=== PATIENT | female | born 1965 | race Caucasian/White ===

== ENCOUNTER 2018-02-02 20:30 | Outpatient (CLI) | payer BC | END 2018-02-02 20:31 | disposition home or self-care (01) | LOC: SLEEPLAB 20:30 | PROVIDERS: ATTEND Internal Medicine | DX: G47.33 Obstructive sleep apnea (adult) (pediatric) (principal); R53.83 Other fatigue; R09.89 Other specified symptoms and signs involving the circulatory and respiratory systems; R06.83 Snoring; G47.00 Insomnia, unspecified; G47.10 Hypersomnia, unspecified; Z68.28 Body mass index [BMI] 28.0-28.9, adult | CPT/HCPCS: 95810 ==

== ENCOUNTER 2018-02-21 20:30 | Outpatient (CLI) | payer BC | END 2018-02-21 20:31 | disposition home or self-care (01) | LOC: SLEEPLAB 20:30 | PROVIDERS: ATTEND Internal Medicine | DX: G47.33 Obstructive sleep apnea (adult) (pediatric) (principal); G47.31 Primary central sleep apnea; R53.83 Other fatigue; R40.0 Somnolence; E66.9 Obesity, unspecified; Z68.28 Body mass index [BMI] 28.0-28.9, adult | CPT/HCPCS: 95811 ==

== ENCOUNTER 2018-05-25 06:31 | Day surgery (SDC) | payer BC ==
[2018-05-24 13:58] VITALS: BMI 29.7
[2018-05-25 07:36] VITALS: BP 105/78; TEMP 97.8
--- NOTE | 2018-05-25 09:29 | CT ---
CT CERVICAL SPINE WITHOUT CONTRAST: Comparison: None. History: Neck pain for a few years. Technique: Multiple contiguous axial images were obtained in a CT cervical spine without contrast. Sa gittal and coronal reformats were performed. FINDINGS: The vertebral bodies demonstrate normal height and alignment without acute fracture or subluxation. T here are moderate osteophytes surrounding the C6-7 interval vertebral disc space. No prevertebral sof t tissue swelling is seen. The posterior facets are well aligned. Normal alignment of the skull base with the cervical spine is seen. IMPRESSION: Degenerative changes of the cervical spine without acute osseous abnormality. POS: [facility]
--- NOTE | 2018-05-25 10:00 | RAD ---
LUMBAR MYELOGRAM: HISTORY: Lumbar stenosis. COMPARISON: None. FLUOROSCOPY TIME: 0.5 minutes DOSE AREA PRODUCT: 476.9 GY per m2. FINDINGS: The patient is brought to the fluoroscopy suite. [facility] radiographs of the lumbar spine demonstrate a spinal stimulator, as well as posterior spinal fusion and anterior spinal fusion from L3-S1. There is also bilateral SI joint fusion. The patient's back was prepped and draped in the normal sterile fashion. The patient was placed pron e on the table. Informed consent was obtained. A time out was performed. Lidocaine 4 mL was instilled into to superficial and deep soft tissues. Using a 22 gauge spinal need le, the L2-L3 interspace was accessed, and 10 mL of Isovue-200 was instilled into the thecal sac. Th e patient tolerated the procedure well without complications. IMPRESSION: Technically successful fluoroscopic guided myelogram. POS: [facility]
--- NOTE | 2018-05-25 10:57 | CT ---
CT LUMBAR SPINE WITH INRATHECAL CONTRAST: HISTORY: Back pain. Post myelogram. COMPARISON: Lumbar spine CT from 10/12/2015. FINDINGS: The aortic contour is nonaneurysmal. No retroperitoneal adenopathy. No hydronephrosis. There is a spinal stimulator with intact leads entering the T12-L1 interspace, po steriorly. Bilateral SI joint fusion of S1-S3. Posterior and anterior spinal fusion, L3-S1. The dillard rgical hardware is intact. No complication. There is bone graft from these levels. The right L4 pe dicle screw has no osseous purchase. The levels are as follows: L1-L2: There is a right subforaminal paracentral moderate recess posterior broad-based disk bulge wi th associated small osteophyte. There is moderate right-sided neural foraminal narrowing. Mild liga mentum flavum hypertrophy. The spinal canal is not significantly narrowed. L2-L3: Circumferential disk bulge. Ligamentum flavum hypertrophy. There is crowding of the spinal canal, which is narrowed to approximately 7 mm. Circumferential disk bulge causes moderate bilateral neural foraminal narrowing. There is also mild to moderate facet arthropathy. L3-L4: Anterior and posterior interbody fusion. No significant neural foramina or spinal canal narr owing. L4-L5: Anterior and posterior interbody fusion. No significant neural foraminal or spinal canal suman rowing. L5-S1: Anterior and posterior interbody fusion. No significant neural foramina or spinal canal narr owing. IMPRESSION: 1. Circumferential disk bulge at L2-L3, the level above the hardware, with ligamentum flavum hypertr ophy, narrowing the spinal canal to 7 mm, as well as moderate bilateral neural foraminal narrowing. 2. There is no osseous purchase of the vertebral body of the right L4 pedicular screw. POS: [facility]
[2018-05-25] MEDS ORDERED: Iopamidol-M 200 41% 20 ML VIAL ONE (16:16)
== END 2018-05-25 09:30 | disposition home or self-care (01) ==
LOC: RAD 06:31
PROVIDERS: ATTEND Anesthesiology Pain Medicine
DX: M47.812 Spondylosis without myelopathy or radiculopathy, cervical region (principal); M51.16 Intervertebral disc disorders with radiculopathy, lumbar region; M48.02 Spinal stenosis, cervical region; M48.062 Spinal stenosis, lumbar region with neurogenic claudication
CPT/HCPCS: 62304; 72125; 72132

== ENCOUNTER 2018-07-15 07:07 | Day surgery (SDC) | payer BC ==
[2018-07-14 15:01] VITALS: BMI 27.9
[2018-07-15 09:21] VITALS: BP 121/83; TEMP 97.8
--- NOTE | 2018-07-15 10:02 | RAD ---
CERVICAL SPINE MYELOGRAM INDICATION: Cervical spine radiculopathy, neck pain. PROCEDURE: After informed consent had been obtained, the patient was escorted to the interventional suite and pl aced on the procedural table. [employer] Manager imaging was performed. The patient was placed into a prone posi tion. Skin on the low back was then prepped and draped in the standard sterile fashion and topical a nd regional soft tissue anesthesia was achieved with 1% lidocaine and sodium bicarbonate. Left inte rlaminar L2-3 approach was selected, and a 22 gauge needle was uneventfully advanced into the thecal sac with clear color CSF. Subsequently, 9 cc Isovue M300 was instilled into the thecal sac under tiffany l time fluoroscopy. Appropriate opacification of thecal sac demonstrated with imaging stored for con firmation. The needle was then removed from the patient. The patient tolerated the procedure well a nd was then transferred to CT to undergo subsequent myelogram. Reference separate report for full de tails. Fluoro data: 0.3 minutes intermittent fluoroscopy, 30 mGy*cm^2. IMPRESSION: Technically successful cervical myelogram as detailed above. POS: [facility]
--- NOTE | 2018-07-15 11:12 | CT ---
CT CERVICAL SPINE WITH CONTRAST: CT CERVICAL MYELOGRAM: INDICATIONS: Cervical spine radiculopathy. Neck pain. TECHNIQUE: Please reference the cervical spine myelogram report for procedural details. FINDINGS: There is degenerative hypertrophy with osteophytosis of the C1-C2 articulation. No high-grade centra l canal stenosis of this level. C2-C3: No significant central canal or neural foraminal stenosis. C3-C4: No significant central canal or neural foraminal stenosis. C4-C5: Mild disk osteophyte complex with effacement of the ventral thecal sac. No significant cord deformity or high-grade foraminal stenosis. C5-C6: There is mild central canal stenosis and mild ventral cord effacement due to a broad-based di sk osteophyte. There is bilateral uncinate process hypertrophy, associated with mild bilateral neura l foraminal narrowing. C6-C7: There is a left asymmetric broad-based disk osteophyte with mild to moderate central canal st enosis and ventral cord effacement, more notable on the left. The is uncinate process hypertrophy wi th moderate left and mild to moderate right neural foraminal narrowing. C7-T1: There is a broad-based mild disk osteophyte with slight effacement of the ventral thecal sac. No high-grade foraminal stenosis. Focal kyphosis is centered at C6. Prominent anterior osteophytosis and pronounced disk space narrowi ng with endplate irregularity is present at the C6-C7 level. IMPRESSION: Multilevel degenerative change of the cervical spine, which is most pronounced at the C5-C6 and C6-C7 levels. POS: [facility]
== END 2018-07-15 10:00 | disposition home or self-care (01) ==
LOC: RAD 07:07
PROVIDERS: ATTEND Anesthesiology Pain Medicine
PROC: B01B1ZZ Fluoroscopy of Spinal Cord using Low Osmolar Contrast (ICD-10-PCS; principal; 2018-07-15)
DX: M50.122 Cervical disc disorder at C5-C6 level with radiculopathy (principal); M48.02 Spinal stenosis, cervical region; Z79.899 Other long term (current) drug therapy; Z88.1 Allergy status to other antibiotic agents
CPT/HCPCS: 62302; 72126

== ENCOUNTER 2019-08-24 13:35 | Outpatient (CLI) | payer BC ==
--- NOTE | 2019-08-24 15:35 | CT ---
CT OF RIGHT FOOT PERFORMED WITHOUT CONTRAST ENHANCEMENT: Date: 08/24/2019 HISTORY: Bilateral foot pain. FINDINGS: There are small calcaneal spurs at the Achilles tendon and plantar fascia insertion. There is an oste ochondral type lesion involving the anteriormost articular surface of the medial side of the talar do me. This measures approximately 9-10 mm in size. There is a well-defined sclerotic border. No evidenc e of any loose fragment. The midfoot region is fairly unremarkable without significant arthritic change. There are some modera tely severe arthritic changes of the first metatarsophalangeal joint and fairly prominent spur format ion, and joint space narrowing, particularly on the dorsal side of the joint. IMPRESSION: 1. Osteochondral lesion involving the anteriormost articular surface of the medial side of the talar dome. 2. Calcaneal spurs. 3. Moderate arthritic changes of first metatarsophalangeal joint. POS: [facility]
--- NOTE | 2019-08-24 15:36 | CT ---
CT OF LEFT FOOT PERFORMED WITHOUT CONTRAST ENHANCEMENT: 08/24/19 HISTORY: Left foot pain. Calcaneal spurs at the insertion of the Achilles tendon as well as plantar fascia are noted. Ankle nohemi int shows minimal arthritic change. Some benign appearing sclerotic density of the cuboid at the calc aneocuboid joint. No other significant midfoot findings. There are moderately severe arthritic changes of the first metatarsophalangeal joint. Marked joint s pace narrowing, particularly on the dorsal side of the joint and some hypertrophic changes involving the sesamoids. IMPRESSION: 1. Moderately severe osteoarthritic changes of the first metatarsophalangeal joint. 2. Calcaneal spurs. POS: [facility]
== END 2019-08-24 13:36 | disposition home or self-care (01) ==
LOC: SCSCT 13:35
PROVIDERS: ATTEND Podiatrist Foot & Ankle Surgery
DX: M20.21 Hallux rigidus, right foot (principal); M20.22 Hallux rigidus, left foot; M19.071 Primary osteoarthritis, right ankle and foot; M19.072 Primary osteoarthritis, left ankle and foot; M77.31 Calcaneal spur, right foot; M77.32 Calcaneal spur, left foot; M89.9 Disorder of bone, unspecified

== ENCOUNTER 2019-10-18 09:24 | Emergency (ER) | payer BC, OTHER | END 2019-10-18 10:08 | disposition home or self-care (01) | LOC: ERS 09:24 | DX: J02.9 Acute pharyngitis, unspecified (principal); J45.909 Unspecified asthma, uncomplicated; I10 Essential (primary) hypertension; E78.00 Pure hypercholesterolemia, unspecified; F41.9 Anxiety disorder, unspecified; F32.9 Major depressive disorder, single episode, unspecified | CPT/HCPCS: 99283 ==

== ENCOUNTER 2020-04-06 07:34 | Day surgery (SDC) | payer BC ==
[2020-04-05 12:55] VITALS: BMI 29.1
--- NOTE | 2020-04-06 10:04 | RAD ---
CERVICAL AND LUMBAR MYELOGRAM: HISTORY: Spinal stenosis. COMPARISON: 05/25/2018. FINDINGS: AP and lateral catalyst recovery operator cervical spine radiograph demonstrate a normal predental space. Cervical spine v ertebral body heights are maintained. No fracture. There is reversal of cervical lordosis at the C5-C6 level. Moderate degenerative disc disease at C5-C6. Moderate severe degenerative change at C6-C 7. Two views lumbar spine demonstrate bilateral transpedicular screws at L3, L4, L5 and S1. There is ant erior fusion at L3-L4, L4-L5 and L5-S1 with associated prosthesis. There are metallic fusion rods traversing bilateral SI joints. Dorsal column stimulator is noted. Stimulator enters the thecal sac a t the L1-L2 disc space. Successful lumbar puncture. A total of 9 cc of Isovue-M 300 contrast was administered intrathecally. Contrast was administered at the L1-L2 level. No immediate or postprocedural complications. TECHNIQUE: Consent was obtained reformatory lumbar puncture for lumbar and cervical myelogram. Patient's back wa s evaluated. Initially, the L2-L3 level was deemed appropriate. Skin was prepped and draped in sterile fashion. 1% lidocaine, buffered with sodium bicarbonate was used for local anesthesia. Attemp t was made to enter the CSF space but is unsuccessful. Therefore, the patient was anesthetized at the L1-L2 level. A 22-gauge spinal needle successfully entered the CSF space. There is prompt flow of clear CSF into the hub of the needle. Via a short tubing catheter, a total of 9 cc of Isovue-M 300 contrast was administered intrathecally. Patient tolerated the procedure well. No immediate or postpr ocedure complications. IMPRESSION: Successful lumbar puncture for cervical and lumbar myelogram. Transcribed Date/Time: 04/06/2020 10:20 AM
--- NOTE | 2020-04-06 10:27 | CT ---
POST MYELOGRAM CERVICAL SPINE CT: HISTORY: Cervical spinal stenosis. COMPARISON: 07/15/2018. FINDINGS: There is stable straightening of cervical lordosis with reversal of lordosis at the C5-C7 level. Ther e is no craniocervical dissociation. Appropriate alignment of the lateral masses of C1 and C2. Intact odontoid process. Predental space is normal. There is no prevertebral soft tissue swelling. Mild heterogeneity of the thyroid gland. Upper mediastinum and lung apices do not demonstrate any abnormality. Cervical spine vertebral body heights are maintained. There is no fracture. C2-C3: Central disc osteophyte complex. Arachnoid space is maintained. No significant central canal s tenosis. Patent bilateral neural foramina. C3-C4: Broad-based discussed by complex abuts the thecal sac. Subarachnoid space is maintained. Mild central canal stenosis. Patent bilateral neural foramina. C4-C5:Broad-based disc osteophyte complex abuts the thecal sac. Subarachnoid space maintained. No sig nificant central canal stenosis. Patent bilateral neural foramina. C5-C6: Moderate severe loss of disc space height. Anterior osteophyte. Broad-based disc osteophyte co mplex. Moderate central canal stenosis. Moderate to severe bilateral neural foraminal narrowing due to uncovertebral hypertrophy. C6-C7:Severe loss of disc space height. There is anterior osteophyte formation. Broad-based disc oste ophyte complex with moderate central canal stenosis. Moderate right and moderate to severe left neural foraminal narrowing. C7-T1: Moderate loss of disc space height. Broad-based disc osteophyte complex with a central disc he rniation. Moderate stenosis of the left aspect of the central spinal canal. Mild bilateral neural foraminal narrowing. IMPRESSION: .Multilevel degenerative changes of the cervical spine as described above. Transcribed Date/Time: 04/06/2020 11:27 AM
--- NOTE | 2020-04-06 10:32 | CT ---
POSTMYELOGRAM LUMBAR SPINE CT: HISTORY: Spinal stenosis. Extensive lumbar fusion. Multiple previous surgeries. COMPARISON: 05/25/2018. FINDINGS: There are bilateral transpedicular screws at L3, L4, L5 and S1. There are associated vertical stabili zation rods and bone graft material. Anterior fusion along with a disc prosthesis at L3-L4, L4-L5 and L5-S1. Dorsal column similar enters the thecal sac at the T12-L1 disc space. Visualized solid organs, alimentary canal, paraspinal muscles and aorta do not demonstrate any acute abnormality. Sacral ala are preserved. Presacral fat is preserved. There are metallic fusion devices bridging bila teral SI joints without evidence of perihardware lucency. Sclerosis involving both sides of the SI joints bilaterally. SI joints are still patent. With regards to the bilateral transpedicular screws there is no perihardware lucency. Note, the right L5 transpedicular screw does not enter the associated lumbar vertebrae. Conus medullaris terminates at the T12-L1 disc space. L1-L2: Central/right subarticular disc herniation. There is contact upon the traversing right L2 nerv e root without significant obscuration. Overall there is mild central canal stenosis. Mild bilateral neural foraminal narrowing. L2-L3: Broad-based disc bulge, ligament flavum thickening and facet hypertrophy result in moderate to severe central canal stenosis. Mild right and moderate left neural foraminal narrowing L3-L4: Posterior laminectomy defect. Disc prosthesis. No significant central canal stenosis or signif icant neural foraminal narrowing. L4-L5: Posterior laminectomy defect. Disc prosthesis. No significant central canal stenosis or signif icant neural foraminal narrowing. L5-S1: Posterior laminectomy defect. Disc prosthesis. No significant central canal stenosis or signif icant neural foraminal narrowing. IMPRESSION: 1. Redemonstration of extensive fusion changes of the lumbar spine. 2. Moderate to severe central canal stenosis at L2-L3 secondary to disc material and posterior elemen t hypertrophy. 3. Redemonstration of lack of osseous purchase of the right L4 transpedicular screw. Transcribed Date/Time: 04/06/2020 11:34 AM
[2020-04-06 10:44] VITALS: BP 121/77; TEMP 97.8
== END 2020-04-06 10:38 | disposition home or self-care (01) ==
LOC: RAD 07:34
PROVIDERS: ATTEND Anesthesiology Pain Medicine
PROC: B01B1ZZ Fluoroscopy of Spinal Cord using Low Osmolar Contrast (ICD-10-PCS; principal; 2020-04-06)
DX: M48.02 Spinal stenosis, cervical region (principal); M48.062 Spinal stenosis, lumbar region with neurogenic claudication; M50.322 Other cervical disc degeneration at C5-C6 level; M47.812 Spondylosis without myelopathy or radiculopathy, cervical region; M51.16 Intervertebral disc disorders with radiculopathy, lumbar region; M25.78 Osteophyte, vertebrae; J45.909 Unspecified asthma, uncomplicated; I10 Essential (primary) hypertension; F41.9 Anxiety disorder, unspecified; F32.9 Major depressive disorder, single episode, unspecified; G47.33 Obstructive sleep apnea (adult) (pediatric); E03.9 Hypothyroidism, unspecified; Z79.899 Other long term (current) drug therapy; Z88.1 Allergy status to other antibiotic agents; Z98.1 Arthrodesis status
CPT/HCPCS: 62305; 72126; 72132

== ENCOUNTER 2022-05-05 07:16 | Day surgery (SDC) | payer BC ==
[2022-05-02 13:12] VITALS: BMI 29.9
[2022-05-05 07:55] VITALS: BP 149/100; TEMP 97.4
[2022-05-05] MEDS ORDERED: FLU VACC QS2022-23(6MOS UP)/PF 60 MCG/0.5 ML SYRINGE IM ONE (09:00)
[2022-05-05] MEDS ORDERED: Iopamidol-M 200 41% 20 ML VIAL ONE (15:04)
== END 2022-05-05 09:15 | disposition home or self-care (01) ==
LOC: RAD 07:16
PROVIDERS: ATTEND Surgery
PROC: B01B1ZZ Fluoroscopy of Spinal Cord using Low Osmolar Contrast (ICD-10-PCS; principal; 2022-05-05)
DX: M48.062 Spinal stenosis, lumbar region with neurogenic claudication (principal); M47.26 Other spondylosis with radiculopathy, lumbar region; M48.02 Spinal stenosis, cervical region; Z88.1 Allergy status to other antibiotic agents; Z98.1 Arthrodesis status
CPT/HCPCS: 62304; 72132; Q9966

== ENCOUNTER 2022-05-23 16:08 | Outpatient (CLI) | payer BC ==
[2022-05-23 17:33] LABS: Hemoglobin 13.5 g/dL (12.0-15.5); Mean Corpuscular HGB CONC 34.2 g/dL (32.0-36.0); Mean Corpuscular Hemoglobin 28.2 pg (27.0-33.0); Mean Corpuscular Volume 82.6 fl (81.6-98.3); Mean Platelet Volume 9.8 fl (7.4-10.4); Platelet Count 368 10x3/uL (150-450); RBC Distribution Width 12.8 % (11.5-14.5); Red Blood Cell (RBC) Count 4.78 10x6/uL (3.90-5.03); White Blood Cell (WBC) Count 7.3 10x3/uL (3.5-10.5)
[2022-05-23 17:46] LABS: Anion Gap 15 mmol/L (10-20); BUN (Urea Nitrogen) 11 mg/dL (9.8-20.1); Calc. Creatinine Clearance 0 mL/min (70-130); Calcium 10.4 mg/dL (7.8-10.44); Carbon Dioxide 28 mmol/L (22-29); Chloride 101 mmol/L (98-107); Estimated GFR 79; Glucose 88 mg/dL (70-105); Sodium 140 mmol/L (136-145)
[2022-05-23 17:54] LABS: PTT 26.4 sec (22.0-33.0); Prothrombin Time 10.4 sec (9.5-12.1)
== END 2022-05-23 16:09 | disposition home or self-care (01) ==
LOC: LABBT 16:08
PROVIDERS: ATTEND Surgery
DX: Z01.818 Encounter for other preprocedural examination (principal); M51.16 Intervertebral disc disorders with radiculopathy, lumbar region; M48.062 Spinal stenosis, lumbar region with neurogenic claudication
CPT/HCPCS: 80048; 85027; 85610; 85730; 93005; 93010

== ENCOUNTER 2022-05-27 09:51 | Observation (INO) | payer BC ==
[2022-05-26 11:21] VITALS: BMI 29.9
[2022-05-27] MEDS ORDERED: Thrombin 5000 UNITS/5 ML VIAL ONE (10:03)
[2022-05-27] MEDS ORDERED: Midazolam HCl 2 mg/2 ml Vial ONE (10:30)
[2022-05-27] MEDS ORDERED: Scopolamine 1.5 mg/72 hour Patch ONE (10:31)
[2022-05-27] MEDS ORDERED: Famotidine/PF 20 mg/2ml Vial ONE (10:31)
[2022-05-27] MEDS ORDERED: CEFAZOLIN 2 GM VIAL ONE (10:52)
[2022-05-27] MEDS ORDERED: Sodium Chloride 0.9% 100 ML ONE (10:52)
[2022-05-27 11:05] LABS: SARS-CoV-2 NAA Rapid Test DETECTED (NotDetected)
[2022-05-27] MEDS ORDERED: fentaNYL PF 100 MCG/2 ML SYRINGE ONE ×2 (11:18→13:07)
[2022-05-27] MEDS ORDERED: PROPOFOL 200 MG/20 ML VIAL ONE (11:20)
[2022-05-27] MEDS ORDERED: Glycopyrrolate 0.2 MG/ML 5 ML SYRINGE ONE (11:20)
[2022-05-27] MEDS ORDERED: Dexamethasone 20 MG/5 ML VIAL ONE (11:20)
[2022-05-27] MEDS ORDERED: NEOSTIGMINE 3 MG/3 ML SYR 3 MG/3 ML SYRINGE ONE (11:20)
[2022-05-27] MEDS ORDERED: Rocuronium Bromide 10 MG/ML (10ML VIAL) ONE (11:20)
[2022-05-27] MEDS ORDERED: ePHEDrine 50 MG/ML VIAL ONE (11:20)
[2022-05-27] MEDS ORDERED: PHENYLEPHRINE-NS 100 MCG/ML 10 ML SYRINGE ONE (11:20)
[2022-05-27] MEDS ORDERED: Ondansetron PF 4 MG/2 ML Vial ONE (11:20)
[2022-05-27] MEDS ORDERED: Morphine 2 MG/ML VIAL SLOW IVP PRN (11:44)
[2022-05-27] MEDS ORDERED: traMADol HCl 50 MG TAB PO PRN (11:44)
[2022-05-27] MEDS ORDERED: Ondansetron PF 4 MG/2 ML Vial IVP PRN (11:44)
[2022-05-27] MEDS ORDERED: Acetaminophen 325 MG TAB PO PRN (11:44)
[2022-05-27] MEDS ORDERED: diphenhydrAMINE 25 MG CAP PO PRN (11:44)
[2022-05-27] MEDS ORDERED: valACYclovir 500 MG TAB PO PRN (11:47)
[2022-05-27] MEDS ORDERED: ALPRAZolam 0.25 MG TAB PO PRN (11:47)
[2022-05-27] MEDS ORDERED: Promethazine HCl 12.5 MG in Sodium Chloride 0.9% 50 ML IVPB PRN (11:47)
[2022-05-27] MEDS ORDERED: FENTANYL 50 MCG/ML 1 ML VIAL ONE (13:34)
[2022-05-27] MEDS ORDERED: Ondansetron HCl/PF 4 MG/2 ML Vial IVP PRN (13:41)
[2022-05-27] MEDS ORDERED: Promethazine HCl 25 MG/ML VIAL IM PRN (13:41)
[2022-05-27] MEDS ORDERED: Promethazine HCl 25 MG/ML VIAL IVPB PRN (13:41)
[2022-05-27] MEDS ORDERED: HYDROmorphone 0.5 MG/0.5 ML SYRINGE ONE ×2 (13:48→14:08)
[2022-05-27] MEDS ORDERED: tiZANidine HCl 4 MG TAB ONE (14:11)
[2022-05-27] MEDS: Acetaminophen/Codeine 30-300mg Tablet PO PRN ×2 (16:08→21:03)
[2022-05-27] MEDS: Pregabalin 50 MG CAP PO SCH ×2 (16:31→21:03)
[2022-05-27] MEDS ORDERED: Morphine 4 MG/ML VIAL SLOW IVP PRN (16:55)
[2022-05-27] MEDS: CEFAZOLIN 2 GM in Sodium Chloride 0.9% 100 ML IVPB SCH (17:39)
[2022-05-27] MEDS: Sodium Chloride 0.9% 1,000 ML IV SCH (18:21)
[2022-05-27] MEDS: HYDROcodone/Acetaminophen 10/325 mg Tablet PO PRN (18:35)
[2022-05-27] MEDS: tiZANidine HCl 4 MG TAB PO PRN (21:03)
[2022-05-27] MEDS: Hydrochlorothiazide 25 MG TAB PO SCH (21:07)
[2022-05-27] MEDS: Zolpidem Tartrate 5 MG TAB PO SCH (21:07)
[2022-05-27] MEDS: Valsartan 80 MG TAB PO SCH (21:07)
[2022-05-28] MEDS: CEFAZOLIN 2 GM in Sodium Chloride 0.9% 100 ML IVPB SCH (03:30)
[2022-05-28] MEDS: HYDROcodone/Acetaminophen 10/325 mg Tablet PO PRN ×3 (03:47→19:50)
[2022-05-28] MEDS: Pregabalin 50 MG CAP PO SCH ×3 (06:20→19:51)
[2022-05-28] MEDS: Sodium Chloride 0.9% 1,000 ML IV SCH ×3 (06:28→21:08)
[2022-05-28] MEDS ORDERED: Dexamethasone 10 MG/ML VIAL SLOW IVP SCH (08:45)
[2022-05-28] MEDS: Cholecalciferol 1,000 UNITS (25 MCG) TAB PO SCH (09:55)
[2022-05-28] MEDS ORDERED: Senokot S 8.6-50 MG TAB PO SCH (11:00)
[2022-05-28] MEDS: tiZANidine HCl 4 MG TAB PO PRN (19:50)
[2022-05-28] MEDS: Senokot S 8.6-50 MG TAB PO SCH (19:50)
[2022-05-28] MEDS: Hydrochlorothiazide 25 MG TAB PO SCH (21:07)
[2022-05-28] MEDS: Zolpidem Tartrate 5 MG TAB PO SCH (21:07)
[2022-05-28] MEDS: Valsartan 80 MG TAB PO SCH (21:07)
[2022-05-29] MEDS: HYDROcodone/Acetaminophen 10/325 mg Tablet PO PRN (01:00)
[2022-05-29] MEDS: Pregabalin 50 MG CAP PO SCH ×2 (06:28→15:33)
[2022-05-29] MEDS: Senokot S 8.6-50 MG TAB PO SCH (09:01)
[2022-05-29] MEDS: Cholecalciferol 1,000 UNITS (25 MCG) TAB PO SCH (09:01)
[2022-05-29 15:32] VITALS: BP 114/69; TEMP 97.8
== END 2022-05-29 14:27 | disposition home or self-care (01) ==
LOC: SDC 09:51 → SURG A 15:20
PROVIDERS: ADMIT Surgery; ATTEND Surgery
PROC: 01NB0ZZ Release Lumbar Nerve, Open Approach (ICD-10-PCS; principal; 2022-05-27)
DX: M48.062 Spinal stenosis, lumbar region with neurogenic claudication (principal); M51.16 Intervertebral disc disorders with radiculopathy, lumbar region; U07.1 COVID-19; Z79.899 Other long term (current) drug therapy; Z88.1 Allergy status to other antibiotic agents; Z88.5 Allergy status to narcotic agent; Z91.048 Other nonmedicinal substance allergy status; Z96.82 Presence of neurostimulator; Z98.1 Arthrodesis status
CPT/HCPCS: 96365; 96375; 96376; G0378; J1100; J1170; J2250; J2270; J2405; J2704; J3010; J3370; J3490; S0028; U0002